=== PATIENT | female | born 1945 | race Hispanic/Latino ===

== ENCOUNTER 2020-06-12 04:14 | Inpatient (IN) | payer OTHER ==
[~2020-06-12] VITALS: Ht 152.4 cm; Wt 50.1 kg
[2020-06-12] MEDS ORDERED: AZITHROMYCIN 500MG+NS 250ML 250 ML IV ONE (04:42)
[2020-06-12 05:08] LABS: BASOPHILS % (AUTO) 0.2 % (0.0-5.0); EOSINOPHILS % (AUTO) 0.1 % (0.0-8.0); HEMATOCRIT 39.9 % (36-48); LYMPHOCYTES % (AUTO) 4.6 % (21.0-51.0); MEAN CORPUSCULAR HEMOGLOBIN 30.8 pg (27.0-33.0); MEAN CORPUSCULAR HGB CONC 32.8 g/dL (32.0-36.0); MEAN CORPUSCULAR VOLUME 93.7 fL (79-99); MONOCYTES % (AUTO) 3.6 % (3.0-13.0); NEUTROPHILS % (AUTO) 89.7 % (40.0-77.0); PLATELET COUNT (AUTO) 332 K/uL (130-400); RED BLOOD CELL COUNT(AUTO) 4.26 MIL/uL (4.00-5.50); RED CELL DISTRIBUTION WIDTH 13.9 % (11.0-15.5); WHITE BLOOD COUNT (AUTO) 14.5 K/uL (4.8-10.8)
[2020-06-12 05:10] LABS: ABG BASE EXCESS 2.9 mmol/L (-2.0-3.0); ABG HCO3 26.2 mmol/L (21.0-28.0); ABG OXYGEN SATURATION 93.5 % (95.0-99.0); ABG PCO2 36 mmHg (32-45)
[2020-06-12 05:12] LABS: CARBON DIOXIDE 28 mmol/L (21-32); CHLORIDE 101 mmol/L (101-111); CREATININE 1.2 mg/dL (0.5-1.5); GLOMERULAR FILTR. RATE CALC 47 mL/min (>60); GLUCOSE,RANDOM 189 mg/dL (70-105); POTASSIUM 3.9 mmol/L (3.5-5.1); SODIUM SERUM 143 mmol/L (136-145); UREA NITROGEN, BLOOD 53 mg/dL (7-18)
[2020-06-12 05:15] LABS: INR 1.1 (0.85-1.15); PROTHROMBIN TIME 11.7 SEC (9.6-11.6)
[2020-06-12 05:16] LABS: PARTIAL THROMBOPLASTIN TIME 22.1 SEC (26.3-35.5)
[2020-06-12 05:23] LABS: APPEARANCE,URINE Clear (CLEAR); BILIRUBIN,URINE Negative (NEGATIVE); COLOR,URINE Yellow (YELLOW); GLUCOSE, URINE (UA) Negative (NEGATIVE); KETONES,URINE Negative (NEGATIVE); LEUKOCYTE ESTERASE ,URINE Trace (NEGATIVE); NITRATE,URINE Negative (NEGATIVE); OCCULT BLOOD,URINE Negative (NEGATIVE); PROTEIN,URINE Trace mg/dL (NEGATIVE); UROBILINOGEN,URINE 0.2 mg/dL (0.2-1.0)
[2020-06-12 05:24] LABS: ALANINE AMINOTRANSFERASE 69 U/L (12-78); ALBUMIN 2.7 g/dL (3.5-5.0); ASPARTATE AMINOTRANSFERASE 40 U/L (10-37); BILIRUBIN,TOTAL 0.8 mg/dL (0.2-1.0); CREATINE KINASE, TOTAL 224 U/L (21-232); MYOGLOBIN 459 ng/mL (10-92); TOTAL PROTEIN, SERUM 7.6 g/dL (6.0-8.3); TROPONIN I < 0.04 ng/mL (0.00-0.06)
[2020-06-12] MEDS ORDERED: CEFTRIAXONE 2GM VIAL ONE (05:25)
[2020-06-12] MEDS ORDERED: IOHEXOL-350 75 ML VIAL IV ONE ×2 (06:31→07:50)
[2020-06-12 06:43] LABS: BACTERIA,URINE Few /HPF (None Seen); RBC,URINE 0-1 /HPF (0-1)
[2020-06-12 06:44] LABS: AMORPHOUS SEDIMENT,UR Moderate /LPF (None Seen)
[2020-06-12 08:41] LABS: ABG BASE EXCESS 2.5 mmol/L (-2.0-3.0); ABG HCO3 26.5 mmol/L (21.0-28.0); ABG OXYGEN SATURATION 84.2 % (95.0-99.0); ABG PCO2 39 mmHg (32-45)
[2020-06-12] MEDS ORDERED: ENOXAPARIN SODIUM 40 MG/0.4 ML SYRINGE SQ SCH (11:45)
[2020-06-12] MEDS ORDERED: IPRATROPIUM/ALBUTEROL SULFATE 3 ML SOLUTION IH SCH (12:00)
[2020-06-12] MEDS ORDERED: DEXAMETHASONE SOD PHOSPHATE 10MG/ML 1ML VIAL ONE (12:03)
[2020-06-12 16:12] LABS: ABG BASE EXCESS 3.4 mmol/L (-2.0-3.0); ABG HCO3 27.1 mmol/L (21.0-28.0); ABG OXYGEN SATURATION 97.6 % (95.0-99.0); ABG PCO2 38 mmHg (32-45)
[2020-06-12] MEDS: ALBUTEROL INHALER 90MCG/INH IH SCH (18:00)
[2020-06-12] MEDS ORDERED: BUDESONIDE 0.5 MG/2 ML INH IH SCH (21:00)
[2020-06-12] MEDS: FAMOTIDINE 20MG VIAL IV SCH (21:00)
[2020-06-13 04:09] LABS: ABG BASE EXCESS 3.5 mmol/L (-2.0-3.0); ABG HCO3 27.1 mmol/L (21.0-28.0); ABG OXYGEN SATURATION 90.5 % (95.0-99.0); ABG PCO2 38 mmHg (32-45)
[2020-06-13 04:47] LABS: BASOPHILS % (AUTO) 0.2 % (0.0-5.0); EOSINOPHILS % (AUTO) 0.4 % (0.0-8.0); HEMATOCRIT 37.4 % (36-48); LYMPHOCYTES % (AUTO) 5.9 % (21.0-51.0); MEAN CORPUSCULAR HGB CONC 32.9 g/dL (32.0-36.0); MEAN CORPUSCULAR VOLUME 94.2 fL (79-99); MONOCYTES % (AUTO) 1.5 % (3.0-13.0); NEUTROPHILS % (AUTO) 90.6 % (40.0-77.0); PLATELET COUNT (AUTO) 265 K/uL (130-400); RED BLOOD CELL COUNT(AUTO) 3.97 MIL/uL (4.00-5.50); RED CELL DISTRIBUTION WIDTH 13.6 % (11.0-15.5); WHITE BLOOD COUNT (AUTO) 11.6 K/uL (4.8-10.8)
[2020-06-13] MEDS: CEFTRIAXONE 1G VIAL IVP SCH (05:00)
[2020-06-13 05:09] LABS: ALBUMIN 2.6 g/dL (3.5-5.0); BILIRUBIN,TOTAL 0.9 mg/dL (0.2-1.0); CREATININE 0.6 mg/dL (0.5-1.5); MAGNESIUM 2.5 mg/dL (1.80-2.40); PHOSPHORUS 4.1 mg/dL (2.5-4.9); POTASSIUM 3.6 mmol/L (3.5-5.1); TOTAL PROTEIN, SERUM 6.4 g/dL (6.0-8.3)
[2020-06-13] MEDS: AZITHROMYCIN 500MG+NS 250ML 250 ML IV SCH (06:00)
[2020-06-13] MEDS: ALBUTEROL INHALER 90MCG/INH IH SCH ×4 (06:00→18:00)
[2020-06-13] MEDS ORDERED: DEXAMETHASONE SOD PHOSPHATE 10MG/ML 1ML VIAL ONE ×2 (08:03→21:09)
[2020-06-13] MEDS ORDERED: ENOXAPARIN SODIUM 40 MG/0.4 ML SYRINGE SQ ONE (08:04)
[2020-06-13] MEDS ORDERED: DEXAMETHASONE SOD PHOSPHATE 4 MG/ML 1ML VIAL IVP SCH (09:00)
[2020-06-13] MEDS: FLUTICASONE/VILANTEROL 1 EACH AER.POW.BA IH SCH (09:00)
[2020-06-13] MEDS ORDERED: ALBUTEROL INHALER 90MCG/INH IH ONE (11:58)
[2020-06-13] MEDS: DEXAMETHASONE SOD PHOSPHATE 4 MG/ML 1ML VIAL IVP SCH (21:00)
[2020-06-13] MEDS: FAMOTIDINE 20MG VIAL IV SCH (21:00)
[2020-06-13] MEDS ORDERED: FAMOTIDINE 20MG VIAL IV ONE (21:10)
[2020-06-14] VITALS (7 sets, daily range): BP systolic 120–160; BP diastolic 50–80
[2020-06-14 04:02] LABS: ABG BASE EXCESS 4.8 mmol/L (-2.0-3.0); ABG HCO3 25.9 mmol/L (21.0-28.0); ABG OXYGEN SATURATION 97.6 % (95.0-99.0); ABG PCO2 29 mmHg (32-45)
[2020-06-14] MEDS ORDERED: AZITHROMYCIN 500MG+NS 250ML 250 ML IV ONE (04:32)
[2020-06-14] MEDS ORDERED: CEFTRIAXONE 1G VIAL ONE (04:32)
[2020-06-14 04:40] LABS: HEMATOCRIT 35.3 % (36-48); MEAN CORPUSCULAR HGB CONC 33.1 g/dL (32.0-36.0); MEAN CORPUSCULAR VOLUME 93.4 fL (79-99); RED BLOOD CELL COUNT(AUTO) 3.78 MIL/uL (4.00-5.50); RED CELL DISTRIBUTION WIDTH 13.3 % (11.0-15.5); WHITE BLOOD COUNT (AUTO) 9.9 K/uL (4.8-10.8)
[2020-06-14 04:59] LABS: CREATININE 0.8 mg/dL (0.5-1.5); MAGNESIUM 2.5 mg/dL (1.80-2.40); PHOSPHORUS 4.2 mg/dL (2.5-4.9); POTASSIUM 3.3 mmol/L (3.5-5.1)
[2020-06-14] MEDS: CEFTRIAXONE 1G VIAL IVP SCH (05:00)
[2020-06-14] MEDS: ALBUTEROL INHALER 90MCG/INH IH SCH ×4 (06:00→18:00)
[2020-06-14] MEDS: AZITHROMYCIN 500MG+NS 250ML 250 ML IV SCH (06:00)
[2020-06-14] MEDS ORDERED: DEXAMETHASONE SOD PHOSPHATE 10MG/ML 1ML VIAL ONE (08:08)
[2020-06-14] MEDS ORDERED: ENOXAPARIN SODIUM 40 MG/0.4 ML SYRINGE SQ ONE (08:08)
[2020-06-14] MEDS: FLUTICASONE/VILANTEROL 1 EACH AER.POW.BA IH SCH (09:00)
[2020-06-14] MEDS ORDERED: 0.9%NACL 50ML 50 ML IV ONE (09:00)
[2020-06-14] MEDS ORDERED: AMIODARONE 150MG VIAL ONE (09:00)
[2020-06-14] MEDS: DEXAMETHASONE SOD PHOSPHATE 4 MG/ML 1ML VIAL IVP SCH ×2 (09:00→20:55)
[2020-06-14] MEDS ORDERED: AMIODARONE 150MG VIAL 150 MG in DEXTROSE 5%-WATER 100 ML IV SCH ×2 (09:15→20:30)
[2020-06-14] MEDS ORDERED: AMIODARONE 900MG VIAL 450 MG in DEXTROSE 5%-WATER 250 ML IV SCH ×2 (09:15→20:30)
[2020-06-14] MEDS ORDERED: AMIODARONE 900MG VIAL 360 MG in DEXTROSE 5%-WATER 200 ML IV SCH ×2 (09:15→20:30)
[2020-06-14 10:22] LABS: ABG BASE EXCESS 3.4 mmol/L (-2.0-3.0); ABG HCO3 26.5 mmol/L (21.0-28.0); ABG OXYGEN SATURATION 91.9 % (95.0-99.0); ABG PCO2 35 mmHg (32-45)
[2020-06-14] MEDS ORDERED: AMLO2.5T4 PO (10:58)
[2020-06-14] MEDS ORDERED: OMEP20TA25 PO (10:58)
[2020-06-14] MEDS ORDERED: OLME40TA18 PO (10:58)
[2020-06-14] MEDS ORDERED: METOPROLOL TARTRATE 1 MG/ML 5ML VIAL IV ONE ×2 (12:22→13:42)
[2020-06-14] MEDS: METOPROLOL TARTRATE 25 MG TAB PO SCH ×2 (14:00→21:04)
[2020-06-14] MEDS ORDERED: AMIODARONE 900MG VIAL 360 MG in DEXTROSE 5%-WATER 200 ML IV NR (20:30)
[2020-06-14] MEDS: METOPROLOL TARTRATE 1 MG/ML 5ML VIAL IV SCH ×3 (20:45→21:37)
[2020-06-14] MEDS ORDERED: AMIODARONE 900MG VIAL 450 MG in DEXTROSE 5%-WATER 250 ML IV NR (20:45)
[2020-06-14] MEDS: FAMOTIDINE 20MG VIAL IV SCH (20:54)
[2020-06-14] MEDS: ENOXAPARIN SODIUM 60 MG/0.6 ML SQ SCH (20:57)
[2020-06-14] MEDS ORDERED: KCL 20 MEQ ERTAB PO SCH (21:45)
[2020-06-15] VITALS (22 sets, daily range): BP systolic 100–177; BP diastolic 35–99
[2020-06-15] MEDS: ZOSYN 3.375GM+NS 50ML 50 ML IV SCH ×3 (04:08→17:00)
[2020-06-15] MEDS: METOPROLOL TARTRATE 25 MG TAB PO SCH ×2 (05:22→21:01)
[2020-06-15] MEDS: AZITHROMYCIN 500MG+NS 250ML 250 ML IV SCH (05:22)
[2020-06-15] MEDS: ALBUTEROL INHALER 90MCG/INH IH SCH ×4 (06:00→17:26)
[2020-06-15 09:23] LABS: CREATININE 0.9 mg/dL (0.5-1.5); MAGNESIUM 2.4 mg/dL (1.80-2.40); POTASSIUM 4.4 mmol/L (3.5-5.1)
[2020-06-15] MEDS: DEXAMETHASONE SOD PHOSPHATE 4 MG/ML 1ML VIAL IVP SCH ×2 (10:14→21:01)
[2020-06-15] MEDS: ENOXAPARIN SODIUM 60 MG/0.6 ML SQ SCH ×2 (10:15→21:00)
[2020-06-15] MEDS: FLUTICASONE/VILANTEROL 1 EACH AER.POW.BA IH SCH (10:16)
[2020-06-15] MEDS ORDERED: AMIODARONE 200 MG TABLET PO SCH (10:45)
[2020-06-15] MEDS: AMIODARONE 200 MG TABLET PO SCH ×2 (12:21→21:01)
[2020-06-15] MEDS: ALPRAZOLAM 0.5 MG TABLET PO PRN (16:57)
[2020-06-15] MEDS: FAMOTIDINE 20MG VIAL IV SCH (21:01)
[2020-06-15 23:32] LABS: ABG BASE EXCESS 2.3 mmol/L (-2.0-3.0); ABG HCO3 25.5 mmol/L (21.0-28.0); ABG OXYGEN SATURATION 86.3 % (95.0-99.0); ABG PCO2 36 mmHg (32-45)
[2020-06-16] VITALS (17 sets, daily range): BP systolic 99–177; BP diastolic 52–100
[2020-06-16] MEDS: ALPRAZOLAM 0.5 MG TABLET PO PRN ×2 (00:16→23:39)
[2020-06-16] MEDS: ALBUTEROL INHALER 90MCG/INH IH SCH ×4 (00:16→18:00)
[2020-06-16] MEDS: ZOSYN 3.375GM+NS 50ML 50 ML IV SCH ×2 (00:16→11:28)
[2020-06-16] MEDS: AZITHROMYCIN 500MG+NS 250ML 250 ML IV SCH (05:18)
[2020-06-16] MEDS: METOPROLOL TARTRATE 25 MG TAB PO SCH ×2 (09:00→20:33)
[2020-06-16] MEDS: AMIODARONE 200 MG TABLET PO SCH ×2 (09:00→20:33)
[2020-06-16] MEDS: DEXAMETHASONE SOD PHOSPHATE 4 MG/ML 1ML VIAL IVP SCH (09:00)
[2020-06-16] MEDS: FLUTICASONE/VILANTEROL 1 EACH AER.POW.BA IH SCH (09:00)
[2020-06-16] MEDS ORDERED: 0.9% NACL 250ML 250 ML IV ONE (11:06)
[2020-06-16] MEDS: ENOXAPARIN SODIUM 60 MG/0.6 ML SQ SCH (11:26)
[2020-06-16] MEDS: SOLU-MEDROL 125MG VIAL IVP SCH ×2 (13:24→20:33)
[2020-06-16] MEDS: LORAZEPAM 2 MG/ML 1 ML VIAL IVP PRN ×2 (13:40→20:34)
[2020-06-16] MEDS: FAMOTIDINE 20MG VIAL IV SCH (20:32)
[2020-06-17] VITALS (20 sets, daily range): BP systolic 112–198; BP diastolic 53–96
[2020-06-17] MEDS: LORAZEPAM 2 MG/ML 1 ML VIAL IVP PRN ×6 (01:01→20:50)
[2020-06-17 04:24] LABS: CREATININE 0.8 mg/dL (0.5-1.5); POTASSIUM 3.8 mmol/L (3.5-5.1)
[2020-06-17] MEDS: ALBUTEROL INHALER 90MCG/INH IH SCH ×4 (05:12→18:00)
[2020-06-17] MEDS: SOLU-MEDROL 125MG VIAL IVP SCH ×3 (05:16→20:49)
[2020-06-17] MEDS: AZITHROMYCIN 500MG+NS 250ML 250 ML IV SCH (05:16)
[2020-06-17] MEDS: FLUTICASONE/VILANTEROL 1 EACH AER.POW.BA IH SCH (08:46)
[2020-06-17] MEDS: METOPROLOL TARTRATE 25 MG TAB PO SCH ×2 (08:46→20:50)
[2020-06-17] MEDS: AMIODARONE 200 MG TABLET PO SCH ×2 (08:46→20:50)
[2020-06-17] MEDS: ENOXAPARIN SODIUM 40 MG/0.4 ML SYRINGE SQ SCH (08:54)
[2020-06-17] MEDS: FAMOTIDINE 20MG VIAL IV SCH ×2 (14:09→20:49)
[2020-06-17] MEDS: METOPROLOL TARTRATE 1 MG/ML 5ML VIAL IV SCH (20:48)
[2020-06-18] VITALS (17 sets, daily range): BP systolic 102–199; BP diastolic 35–96
[2020-06-18] MEDS: LORAZEPAM 2 MG/ML 1 ML VIAL IVP PRN ×2 (01:00→06:01)
[2020-06-18] MEDS: METOPROLOL TARTRATE 1 MG/ML 5ML VIAL IV SCH ×2 (01:45→12:45)
[2020-06-18] MEDS: ALBUTEROL INHALER 90MCG/INH IH SCH ×2 (06:00)
[2020-06-18] MEDS: SOLU-MEDROL 125MG VIAL IVP SCH ×2 (06:01→12:45)
[2020-06-18] MEDS: AZITHROMYCIN 500MG+NS 250ML 250 ML IV SCH (06:01)
[2020-06-18] MEDS: AMIODARONE 200 MG TABLET PO SCH ×2 (09:00→09:56)
[2020-06-18] MEDS: METOPROLOL TARTRATE 25 MG TAB PO SCH ×2 (09:00→09:57)
[2020-06-18 09:58] LABS: BASOPHILS % (AUTO) 0.2 % (0.0-5.0); HEMATOCRIT 44.1 % (36-48); LYMPHOCYTES % (AUTO) 1.3 % (21.0-51.0); MEAN CORPUSCULAR VOLUME 103.5 fL (79-99); NEUTROPHILS % (AUTO) 95.4 % (40.0-77.0); PLATELET COUNT (AUTO) 361 K/uL (130-400); RED BLOOD CELL COUNT(AUTO) 4.26 MIL/uL (4.00-5.50); RED CELL DISTRIBUTION WIDTH 14.5 % (11.0-15.5)
[2020-06-18 10:17] LABS: ALBUMIN 2.4 g/dL (3.5-5.0); BILIRUBIN,TOTAL 0.3 mg/dL (0.2-1.0); CREATININE 1.1 mg/dL (0.5-1.5); POTASSIUM 4.2 mmol/L (3.5-5.1); TOTAL PROTEIN, SERUM 6.9 g/dL (6.0-8.3)
[2020-06-18 10:36] LABS: LYMPHOCYTES % (MANUAL) 4 % (22-44); MONOCYTES % (MANUAL) 4 % (2-9); SEGMENTED NEUTROPHILS % 92 % (40-70)
[2020-06-18 10:38] LABS: PLATELET MORPHOLOGY COMMENT ADEQUATE
[2020-06-18] MEDS ORDERED: FLUMAZENIL 0.1MG/1ML 5ML VIAL IV SCH (11:30)
[2020-06-18] MEDS ORDERED: DEXTROSE 5%-WATER 1,000 ML IV SCH (11:30)
[2020-06-18] MEDS ORDERED: PHARMACY COMMUNICATION MISC SCH ×2 (11:30→15:30)
[2020-06-18] MEDS ORDERED: CEFTRIAXONE 1G VIAL IVP SCH (12:30)
[2020-06-18] MEDS ORDERED: DOXYCYCLINE HYCLATE 100 MG TABLET PO SCH (12:30)
[2020-06-18] MEDS: FAMOTIDINE 20MG VIAL IV SCH (12:45)
[2020-06-18] MEDS ORDERED: DOXYCYCLINE 100MG+NS 250ML 250 ML IV SCH (12:45)
[2020-06-18] MEDS: ENOXAPARIN SODIUM 40 MG/0.4 ML SYRINGE SQ SCH (12:46)
[2020-06-18] MEDS ORDERED: LORAZEPAM 2 MG/ML 1 ML VIAL IVP PRN (15:30)
[2020-06-18] MEDS ORDERED: MORPHINE 2 MG SYG IVP PRN (15:30)
== END 2020-06-18 16:30 | disposition expired | DRG 177 ==
LOC: EDH 04:14 → EDHIP 06:22 → 2AH 06-14 19:39
PROVIDERS: ADMIT Internal Medicine; ATTEND Internal Medicine
PROC: 5A0935A Assistance with Respiratory Ventilation, Less than 24 Consecutive Hours, High Flow/Velocity Cannula (ICD-10-PCS; principal; 2020-06-15)
PROC: 5A09457 Assistance with Respiratory Ventilation, 24-96 Consecutive Hours, Continuous Positive Airway Pressure (ICD-10-PCS; 2020-06-16)
PROC: 5A09357 Assistance with Respiratory Ventilation, Less than 24 Consecutive Hours, Continuous Positive Airway Pressure (ICD-10-PCS; 2020-06-18)
DX: U07.1 COVID-19 (principal); J96.01 Acute respiratory failure with hypoxia; J12.82 Pneumonia due to coronavirus disease 2019; J93.9 Pneumothorax, unspecified; G93.49 Other encephalopathy; F05 Delirium due to known physiological condition; E87.0 Hyperosmolality and hypernatremia; E11.9 Type 2 diabetes mellitus without complications; E78.5 Hyperlipidemia, unspecified; F19.90 Other psychoactive substance use, unspecified, uncomplicated; I10 Essential (primary) hypertension; D64.9 Anemia, unspecified; I48.91 Unspecified atrial fibrillation; D72.829 Elevated white blood cell count, unspecified; F41.9 Anxiety disorder, unspecified; Z66 Do not resuscitate; J98.2 Interstitial emphysema; Z83.3 Family history of diabetes mellitus; Z82.49 Family history of ischemic heart disease and other diseases of the circulatory system; Z82.3 Family history of stroke; Z83.49 Family history of other endocrine, nutritional and metabolic diseases; Z82.0 Family history of epilepsy and other diseases of the nervous system
CPT/HCPCS: 36415; 36600; 71045; 71275; 80048; 80053; 81001; 82435; 82550; 82803; 82947; 82948; 83605; 83735; 83874; 83880; 84100; 84132; 84145; 84295; 84484; 85018; 85025; 85027; 85378; 85610; 85730; 86140; 86900; 86901; 87040; 87088; 87426; 87804; 93005; 93970; 94660; 99291; A4344; G0378; J0282; J0456; J0696; J1100; J1650; J2060; J2543; J2930; J3490; J7050; J7060; J7070; Q9967